=== PATIENT | female | born 1955 | race Hispanic/Latino ===

== ENCOUNTER 2018-11-14 21:39 | Emergency (ER) | payer BC ==
--- NOTE | 2018-11-14 23:05 | Emergency Department Report ---
ED Shortness of Breath HPI - General Chief Complaint: Dyspnea/Respdistress Stated Complaint: JAIRO Time Seen by Provider: 11/14/18 22:51 Source: EMS Mode of arrival: Stretcher Limitations: No Limitations - History of Present Illness Initial Comments: Patient is 63 years old female with history of COPD. Patient brought to the emergency room via EMS for evaluation of shortness of breath that started this evening associated with wheezing. The patient received Solu-Medrol, and magnesium sulfate was started on BiPAP by EMS. Upon arrival to ER patient is in no acute distress with an oxygen saturation of 100% on room air. Patient denied any chest pain, fever or chills. Patient stated that she had a recent cardiac cath and she was told that it was negative. MD Complaint: shortness of breath -: This evening Severity: moderate Known History Of: COPD Associated Symptoms: denies other symptoms Treatments Prior to Arrival: bronchodilator, NIPPV - Related Data Allergies Allergy/AdvReac Type Severity Reaction Status Date / Time amoxicillin Allergy Hives Verified 11/14/18 21:56 ED Review of Systems ROS: Stated complaint: JAIRO Other details as noted in HPI Comment: All other systems reviewed and negative Constitutional: denies: chills, fever Respiratory: shortness of breath, SOB with exertion, SOB at rest, wheezing. denies: cough, orthopnea, stridor Cardiovascular: denies: chest pain, palpitations Gastrointestinal: denies: abdominal pain, nausea, vomiting, diarrhea, constipation, hematemesis, melena, hematochezia Neurological: denies: headache, weakness, numbness, paresthesias, confusion, abnormal gait ED Past Medical Hx - Past Medical History Previous Medical History?: Yes Hx Hypertension: Yes Hx Psychiatric Treatment: Yes (depression) Additional medical history: Anemia, hypothyroidism,RLS - Surgical History Past Surgical History?: Yes Hx Cholecystectomy: Yes Additional Surgical History: x 4, bilateral knee surgery - Social History Smoking Status: Former Smoker Substance Use Type: None ED Physical Exam - General Limitations: No Limitations General appearance: alert, in no apparent distress - Head Head exam: Present: atraumatic, normocephalic, normal inspection - Eye Eye exam: Present: normal appearance, PERRL - ENT ENT exam: Present: normal exam, normal orophraynx, mucous membranes moist - Neck Neck exam: Present: normal inspection, full ROM. Absent: tenderness, meningismus, lymphadenopathy, thyromegaly - Respiratory Respiratory exam: Present: normal lung sounds bilaterally. Absent: respiratory distress, wheezes, rales, rhonchi, stridor, chest wall tenderness, accessory muscle use, decreased breath sounds, prolonged expiratory - Cardiovascular Cardiovascular Exam: Present: regular rate, normal rhythm, normal heart sounds - GI/Abdominal GI/Abdominal exam: Present: soft, normal bowel sounds. Absent: distended, tenderness, guarding, rebound, rigid - Extremities Exam Extremities exam: Present: normal inspection, full ROM, normal capillary refill - Back Exam Back exam: Present: normal inspection, full ROM. Absent: CVA tenderness (R), CVA tenderness (L) - Neurological Exam Neurological exam: Present: alert, oriented X3, CN II-XII intact, normal gait, reflexes normal - Skin Skin exam: Present: warm, intact, normal color ED Medical Decision Making - Lab Data Result diagrams: 11/14/18 23:32 11/14/18 23:32 - Medical Decision Making Patient is 63 years old female with history of COPD. Patient brought to the emergency room via EMS for evaluation of shortness of breath that started this evening associated with wheezing. The patient received Solu-Medrol, and magnesium sulfate was started on BiPAP by EMS. Upon arrival to ER patient is in no acute distress with an oxygen saturation of 100% on room air. Patient denied any chest pain, fever or chills. Patient stated that she had a recent cardiac cath and she was told that it was negative. Labs reviewed and is unremarkable except for hemoglobin of 7.5 and a potassium of 3.2. Patient received 40 mEq of potassium by mouth and advised to follow primary care physician for further workup for her anemia. Patient also advised to return to the ER if symptoms are not improved. Critical care attestation.: If time is entered above; I have spent that time in minutes in the direct care of this critically ill patient, excluding procedure time. ED Disposition Clinical Impression: COPD exacerbation, Hypokalemia Disposition: TO HOME OR SELFCARE Is pt being admited?: No Condition: Stable Instructions: Chronic Obstructive Pulmonary Disease (ED), Hypokalemia (ED) Referrals: JAGUAR BENITEZ MD [Primary Care Provider] - 3-5 Days
--- NOTE | 2018-11-14 23:48 | XRay Report ---
CHEST 1 VIEW 11/14/2018 11:11 PM INDICATION / CLINICAL INFORMATION: Dyspnea. COMPARISON: None available. FINDINGS: SUPPORT DEVICES: None. HEART / MEDIASTINUM: No significant abnormality. LUNGS / PLEURA: There is probable mild left basilar atelectasis. The lungs are otherwise clear. No si gnificant pleural effusion. No pneumothorax. ADDITIONAL FINDINGS: No significant additional findings. IMPRESSION: No acute findings. Signer Name: Jose Guadalupe Jimenez MD Signed: 11/14/2018 11:44 PM Workstation Name: [id number]
[2018-11-15] LABS: Hematocrit 22.7 % (30.3-42.9); Hemoglobin 7.5 gm/dl (10.1-14.3); Mean Corpuscular HGB Conc 33 % (30-34); Mean Corpuscular Volume 80 fl (79-97); Platelet Count 270 K/mm3 (140-440); Red Blood Count 2.85 M/mm3 (3.65-5.03); Red Cell Distribution Width 16.7 % (13.2-15.2)
[2018-11-15 00:39] LABS: BUN/Creatinine Ratio 17; Blood Urea Nitrogen 15 mg/dL (7-17); Calcium 8.6 mg/dL (8.4-10.2); Hemolysis Index 5
[2018-11-15] MEDS ORDERED: K-DUR PO ONE (01:05)
[2018-11-15 04:33] LABS: Anisocytosis 1+; Band Neutrophils # (Manual) 0.1 K/mm3; Basophils % (Manual) 0 % (0.0-1.8); Eosinophils % (Manual) 0 % (0.0-4.3); Hypochromasia 1+; Ovalocytes Few; Total Cells Counted 100
== END 2018-11-15 06:24 | disposition home or self-care (01) ==
LOC: ED 21:39
DX: E87.6 Hypokalemia (principal); J44.1 Chronic obstructive pulmonary disease with (acute) exacerbation; I10 Essential (primary) hypertension; F32.9 Major depressive disorder, single episode, unspecified; Z86.2 Personal history of diseases of the blood and blood-forming organs and certain disorders involving the immune mechanism; E03.9 Hypothyroidism, unspecified; Z90.49 Acquired absence of other specified parts of digestive tract; Z87.891 Personal history of nicotine dependence; Z88.1 Allergy status to other antibiotic agents
CPT/HCPCS: 36415; 71045; 80048; 85007; 85025; 99284